=== PATIENT | female | born 1985 | race American Indian/Alaskan Native ===

== ENCOUNTER 2017-04-27 00:21 | Emergency (ER) | payer MEDICAID ==
[2017-04-27] MEDS ORDERED: ZOFRAN IV ONE (01:15)
[2017-04-27] MEDS ORDERED: SUBLIMAZE IV ONE (01:15)
[2017-04-27] MEDS ORDERED: BOOSTRIX IM ONE (01:19)
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
[2017-04-27 01:33] LABS: Bilirubin,Urine NEG (Negative); Blood,Urine LG (Negative); Ketones,Urine NEG (Negative); Leukocyte Esterase,Urine TR (Negative); Mucus,Urine FEW /HPF; Nitrite,Urine NEG (Negative); Protein,Urine <15 mg/dL mg/dL (Negative); Urobilinogen,Urine < 2.0 mg/dL (<2.0)
[2017-04-27 01:36] LABS: Basophils % (Auto) 0.4 % (0.0-1.8); Eosinophils % (Auto) 0.3 % (0.0-4.3); Hematocrit 36.1 % (30.3-42.9); Mean Corpuscular HGB Conc 33 % (30-34); Mean Corpuscular Hemoglobin 29 pg (28-32); Mean Corpuscular Volume 88 fl (79-97); Platelet Count 346 K/mm3 (140-440); Red Cell Distribution Width 15.5 % (13.2-15.2); White Blood Count 5.6 K/mm3 (4.5-11.0)
[2017-04-27] MEDS ORDERED: NACL ONE (01:48)
[2017-04-27 02:09] LABS: Alanine Aminotransferase 11 units/L (7-56); Albumin 4.9 g/dL (3.9-5); Albumin/Globulin Ratio 1.3 %; Alkaline Phosphatase 91 units/L (35-129); Anion Gap 20 mmol/L; BUN/Creatinine Ratio 9; Blood Urea Nitrogen 6 mg/dL (7-17); Calcium 9.4 mg/dL (8.4-10.2); Carbon Dioxide 24 mmol/L (22-30); Chloride 101.3 mmol/L (98-107); Glucose 119 mg/dL (65-100); Potassium 3.7 mmol/L (3.6-5.0); Sodium 142 mmol/L (137-145); Total Protein 8.8 g/dL (6.3-8.2)
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
[2017-04-27 03:11] VITALS: BP 142/80
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
== END 2017-04-27 04:23 | disposition home or self-care (01) ==
LOC: ED 00:21
DX: S30.1XXA Contusion of abdominal wall, initial encounter (principal); S80.212A Abrasion, left knee, initial encounter; S80.211A Abrasion, right knee, initial encounter; F17.200 Nicotine dependence, unspecified, uncomplicated; Z98.51 Tubal ligation status; V09.9XXA Pedestrian injured in unspecified transport accident, initial encounter; Y93.89 Activity, other specified; Y92.89 Other specified places as the place of occurrence of the external cause; Y99.8 Other external cause status
CPT/HCPCS: 36415; 73130; 73562; 74177; 80053; 81001; 81025; 85025; 90471; 90715; 96374; 96375; 99285; G0480; J2405; J3010; Q9967; 80320